=== PATIENT | male | born 1950 | race Caucasian/White ===

== ENCOUNTER 2016-10-13 10:09 | Observation (INO) | payer MEDICAID ==
--- NOTE | 2016-10-13 10:32 | EDM.PDOC ---
ED HISTORY OF PRESENT ILLNESS - General Stated Complaint: TACHYCARDIA/FROM CLINIC Time Seen by Provider: 10/13/16 10:27 Source of Information: Reports: Patient, Provider (Dr. Wall) History Limitations: Reports: No limitations - History of Present Illness INITIAL COMMENTS - FREE TEXT/NARRATIVE: This 66 yo male patient was sent to the ED from the [facility] due to palpitations and tachycardia. According to Dr. Wall, the patient came into the clinic for medication refills. Apparently, the patient had an episode of syncope about 1 year ago and has been on Metoprolol XL (50 mg) daily for some time. During the assessment in the clinic, the patient was noted to have a heart rate between 120-130 bpm and reported palpitations. No lab work or EKG was done in the clinic during this visit. Symptom Onset Date: 10/13/16 Timing/Duration: Reports: Constant Severity: moderate Location, General: Reports: chest Quality: Reports: Other (palpitations) Improves with: Reports: None Worsens with: Reports: None Associated Symptoms (General): Reports: no other symptoms - Related Data Allergies/ADRs: Allergies Allergy/AdvReac Type Severity Reaction Status Date / Time No Known Allergies Allergy Verified 10/02/14 10:15 Home Meds: Home Meds Ibuprofen 400 mg PO Q6H PRN 10/01/14 [History] Aspirin [Adult Low Dose Aspirin EC] 81 mg PO DAILY 10/15/15 [History] Losartan/Hydrochlorothiazide [Losartan-HCTZ 50-12.5 MG] 1 tab PO DAILY 10/15/15 [History] Fenofibrate Nanocrystallized [Fenofibrate] 145 mg PO DAILY 10/13/16 [History] Metoprolol Succinate [Toprol Xl] 50 mg PO DAILY 10/13/16 [History] Past Medical History - Past Health History Medical/Surgical History: Denies Medical/Surgical History Social & Family History - Tobacco Use Smoking Status *Q: Never Smoker Second Hand Smoke Exposure: Yes - Alcohol Use Days Per Week of Alcohol Use: 5 Number of Drinks Per Day: 4 Total Drinks Per Week: 20 - Recreational Drug Use Recreational Drug Use: No ED ROS GENERAL - Review of Systems Review Of Systems: ROS reveals no pertinent complaints other than HPI. ED EXAM, GENERAL - Physical Exam Exam: See Below Exam Limited By: No limitations General Appearance: alert, WD/WN, mild distress Eye Exam: bilateral eye: EOMI, normal inspection, PERRL Ears: normal external exam, normal canal, hearing grossly normal, normal TMs Nose: normal inspection, normal mucosa, no blood Throat/Mouth: Normal inspection, Normal lips, Normal teeth, Normal gums, Normal oropharynx, Normal voice, No airway compromise Head: atraumatic, normocephalic Neck: normal inspection, supple, non-tender, full range of motion Respiratory/Chest: no respiratory distress, lungs clear, normal breath sounds, no accessory muscle use, chest non-tender Cardiovascular: no edema, no gallop, no JVD, no murmur, no rub, tachycardia, irregularly irregular GI/Abdominal: normal bowel sounds, soft, non tender, no organomegaly, no distention, no abnormal bruit, no mass (Male) Exam: Deferred Rectal (Males) Exam: Deferred Back Exam: normal inspection, full range of motion, NT Extremities: normal inspection, normal range of motion, non-tender, normal capillary refill, no pedal edema Neurological: alert, oriented, CN II-XII intact, normal cognition, normal gait, normal reflexes, no motor/sensory deficits Psychiatric: normal affect, normal mood Skin Exam: Warm, Dry, Intact, Normal color, No rash Lymphatic: no adenopathy Course - Vital Signs Last Recorded V/S: Last Vital Signs Temp 35.9 C 10/13/16 11:19 Pulse 127 H 10/13/16 11:19 Resp 19 10/13/16 11:19 BP 147/95 H 10/13/16 11:19 Pulse Ox 96 10/13/16 11:19 - Orders/Labs/Meds Orders: Active Orders 24 hr Category Date Time Status EKG Documentation Completion [RC] URGENT Care 10/13/16 10:13 Active Sodium Chloride 0.9% [Normal Saline] 1,000 ml Med 10/13/16 10:47 Active IV .BOLUS Medication Orders Sodium Chloride (Normal Saline) 1,000 mls @ 125 mls/hr IV .BOLUS ONE Stop: 10/13/16 18:46 Last Admin: 10/13/16 10:52 Dose: 125 mls/hr Labs: Laboratory Tests 10/13/16 10/13/16 Range/Units 10:20 10:20 WBC 7.7 (5.0-10.0) 10^3/uL RBC 4.67 (4.6-6.2) 10^6/uL Hgb 15.1 (14.0-18.0) g/dL Hct 43.1 (40.0-54.0) % MCV 92.3 (80-100) fL MCH 32.3 (27.0-34.0) pg MCHC 35.0 (33.0-35.0) g/dL Plt Count 260 (150-450) 10^3/uL Neut % (Auto) 61.5 (42.2-75.2) % Lymph % (Auto) 26.5 (20.5-50.1) % [place] % (Auto) 9.8 H (2-8) % Eos % (Auto) 1.8 (1.0-3.0) % Baso % (Auto) 0.4 (0.0-1.0) % Sodium 142 (135-145) mmol/L Potassium 3.5 L (3.6-5.0) mmol/L Chloride 104 (101-111) mmol/L Carbon Dioxide 28.0 (21.0-31.0) mmol/L Anion Gap 13.5 BUN 20 H (7-18) mg/dL Creatinine 1.6 H (0.6-1.3) mg/dL Est Cr Clr Drug Dosing 49.68 mL/min Estimated GFR (MDRD) 44 BUN/Creatinine Ratio 12.50 Glucose 122 H (74-105) mg/dL Calcium 9.3 (8.4-10.2) mg/dl Total Bilirubin 0.8 (0.2-1.0) mg/dL AST 29 (10-42) IU/L ALT 21 (10-60) IU/L Alkaline Phosphatase 32 L (42-121) IU/L Troponin I < 0.02 (0.00-0.02) ng/ml Total Protein 7.7 (6.7-8.2) g/dl Albumin 4.4 (3.2-5.5) g/dl Globulin 3.3 Albumin/Globulin Ratio 1.33 Meds: Medications Generic Name Dose Route Start Last Admin Trade Name Freq PRN Reason Stop Dose Admin Sodium Chloride 1,000 mls @ 125 mls/hr 10/13/16 10:47 10/13/16 10:52 Normal Saline IV 10/13/16 18:46 125 mls/hr .BOLUS ONE Administration Discontinued Medications Generic Name Dose Route Start Last Admin Trade Name [place]ell PRN Reason Stop Dose Admin Metoprolol Tartrate 2.5 mg 10/13/16 10:44 10/13/16 10:56 Lopressor IVPUSH 10/13/16 10:45 2.5 mg ONETIME ONE Administration Metoprolol Tartrate 2.5 mg 10/13/16 11:08 10/13/16 11:15 Lopressor IVPUSH 10/13/16 11:09 2.5 mg ONETIME ONE Administration - Re-Assessments/Exams Free Text/Narrative Re-Assessment/Exam: 10/13/16 11:50 Discussed the examination, lab, EKG, treatments and history with Dr. Phelan. Dr. Phelan agreed to accept the patient for continued evaluation and further management. When the above information was relayed to the patient, the patient refused to be admitted to the hospital if his [place] [employer] would not cover the stay. A call was placed to our business office to discuss his insurance coverage with the patient. Marylin from our business office came to the ED to discuss the insurance coverage with the patient. The patient continued to think the admission to the hospital is unnecessary, but agreed to be admitted for further evaluation and management. Departure - Departure Time of Disposition: 12:02 Disposition: Admitted As Inpatient 68 Condition: fair Clinical Impression: Atrial fibrillation with rapid ventricular response Care Plan Goals: Discussed the examination, history, lab and EKG results with Dr. Phelan. Dr. Phelan agreed to admit the patient for continued evaluation and management. - My Orders Last 24 Hours: My Active Orders 10/13/16 10:13 EKG Documentation Completion [RC] URGENT 10/13/16 10:47 Sodium Chloride 0.9% [Normal Saline] 1,000 ml IV .BOLUS - Assessment/Plan Last 24 Hours: My Active Orders 10/13/16 10:13 EKG Documentation Completion [RC] URGENT 10/13/16 10:47 Sodium Chloride 0.9% [Normal Saline] 1,000 ml IV .BOLUS
[2016-10-13] MEDS ORDERED: Metoprolol Tartrate 5 MG/5 ML SDV IVPUSH ONE ×2 (10:44→11:08)
[2016-10-13] MEDS ORDERED: Sodium Chloride 0.9% 1,000 ML IV ONE (10:47)
[2016-10-13 11:19] LABS: CHLORIDE,CL 104 mmol/L (101-111); SODIUM,NA 142 mmol/L (135-145)
[2016-10-13] MEDS: Metoprolol Succinate 25 MG Tab.ER PO SCH (13:31)
[2016-10-13] MEDS ORDERED: Acetaminophen 325 MG Tab PO PRN (13:52)
[2016-10-13] MEDS ORDERED: Sodium Chloride 0.9% 10 ML Syringe FLUSH PRN (13:52)
--- NOTE | 2016-10-13 14:05 | PCM.HP ---
H&P History of Present Illness - General Date of Service: 10/13/16 Admit Problem/Dx: Admission Diagnosis/Problem Admission Diagnosis/Problem Afib, Atrial fibrillation Source of Information: Patient, Old records, Provider History Limitations: Reports: No limitations - History of Present Illness Initial Comments - Free Text/Narative: Genaro is a pleasant 66 y/o who lives alone/independently. He has a PMH of HTN, HLD, CKD, ETOH abuse and h/o palpitations. pt presented to the EOD from clinic. He presented to clinic for routine f/u and was found to be in afib with RVR. PT states that over the past year of so he has had episodes of palpitations/lightheadedness associated with chest discomfort, occasionally diaphoresis, no nausea/emesis, no syncope/near syncope. events seem to occur at least one monthly and are always triggered with excertion- golfing, working out, shoveling snow for examples. The symptoms resolve after 10--15 minutes of rest. Has never occurred while at rest. PT was seen one year ago for these symptoms. EKG, ECHO and stress test were noted to be all unremarkable. PT was started on several BP meds for is uncontrolled HTN but he has cont to have these episodes. w/u in EOD significant for afib with RVR- pulse into 140s. pt given 2.5 mg lopressor X2 but pulse only improved to 120s. trops was negative. upon transfer to floor- pt converted back to sinus without any further interventions . pt currently is asymptomatic. He denies h/o thyroid dz, no recent illness, no herbal supplements, no energy drinks. no h/o pulm dz . He does not smoke He does drink 4-6 cans of pepsis every night with whiskey. no FHX of afib. - Related Data Allergies/Adverse Reactions: Allergies Allergy/AdvReac Type Severity Reaction Status Date / Time No Known Allergies Allergy Verified 10/02/14 10:15 Home Medications: Home Meds Aspirin [Adult Low Dose Aspirin EC] 81 mg PO DAILY 10/15/15 [History] Losartan/Hydrochlorothiazide [Losartan-HCTZ 50-12.5 MG] 1 tab PO DAILY 10/15/15 [History] Fenofibrate Nanocrystallized [Fenofibrate] 145 mg PO DAILY 10/13/16 [History] Metoprolol Succinate [Toprol Xl] 50 mg PO DAILY 10/13/16 [History] Past Medical History - Past Health History Medical/Surgical History: Denies Medical/Surgical History HEENT History: Reports: Impaired vision Social & Family History - Family History Family Medical History: Noncontributory Cardiac: Reports: Hypertension (mother), Other (see below) ("heart dz" - in mother) Neurological: Reports: CVA (mother and sister) - Tobacco Use Smoking Status *Q: Never Smoker Second Hand Smoke Exposure: No - Caffeine Use Caffeine Use: Reports: Soda - Alcohol Use Days Per Week of Alcohol Use: 7 Number of Drinks Per Day: 6 Total Drinks Per Week: 42 Date of Last Drink: 10/12/16 Time of Last Drink: 21:00 - Recreational Drug Use Recreational Drug Use: No H&P Review of Systems - Review of Systems: Review Of Systems: See Below General: Reports: no symptoms HEENT: Reports: no symptoms Pulmonary: Reports: No Symptoms Cardiovascular: Reports: palpitations, lightheadedness, blood pressure problem Gastrointestinal: Reports: No symptoms Genitourinary: Reports: no symptoms Musculoskeletal: Reports: no symptoms Skin: Reports: no symptoms Psychiatric: Reports: no symptoms Neurological: Reports: No Symptoms Exam - Exam Exam: See Below - Vital Signs Vital Signs: Last Vital Signs Temp 36.8 C 10/13/16 12:29 Pulse 80 10/13/16 13:31 Resp 20 10/13/16 12:29 BP 157/104 H 10/13/16 13:31 Pulse Ox 100 10/13/16 12:29 Weight: 87.09 kg - Exam General: alert, oriented, cooperative HEENT: Conjunctiva clear Lungs: Clear to auscultation, Normal respiratory effort Cardiovascular: regular rate, regular rhythm Abdomen: normal bowel sounds, soft Extremities: normal inspection Peripheral Pulses: 2+: radial (L), radial (R), dorsalis pedis (L), dorsalis pedis (R) Skin: warm Neuro Extensive - Mental Status: alert, oriented x3, normal mood/affect, normal cognition Psychiatric: alert, normal affect, normal mood - Patient Data Result Diagrams: 10/13/16 10:20 10/13/16 10:20 *Q Meaningful Use (ADM) - VTE *Q VTE Criteria *Q: - Stroke *Q Stroke Criteria *Q: - AMI *Q AMI Criteria *Q: - Problem List (1) Atrial fibrillation with rapid ventricular response SNOMED Code(s): 628512752527025 ICD Code: I48.91 - UNSPECIFIED ATRIAL FIBRILLATION Status: Acute Current Visit: Yes Problem List Initiated/Reviewed/Updated: Yes Orders Last 24hrs: Active Orders 24 hr Category Date Time Status Patient Status [ADT] Routine ADT 10/13/16 13:53 Ordered Oxygen Therapy [RC] PRN Care 10/13/16 13:53 Ordered Telemetry Monitoring [Cardiac Monitoring] [RC] 08,20 Care 10/13/16 12:38 Active Up ad Kim [RC] ASDIRECTED Care 10/13/16 13:52 Ordered VTE/DVT Education [RC] PER UNIT ROUTINE Care 10/13/16 13:53 Ordered Vital Signs [RC] Q4H Care 10/13/16 13:53 Ordered Regular Diet [DIET] Diet 10/13/16 Dinner Active Echo Comp wo Cont [US] Routine Exams 10/13/16 12:38 Ordered TSH ULTRASENSITIVE [CHEM] Routine Lab 10/13/16 13:55 Ordered Acetaminophen [Tylenol] Med 10/13/16 13:52 Ordered 650 mg PO Q4H PRN Enoxaparin [Lovenox] Med 10/14/16 09:00 Ordered 40 mg SUBCUT DAILY Metoprolol Succinate [Toprol XL] Med 10/13/16 12:45 Active 75 mg PO DAILY Sodium Chloride 0.9% [Saline Flush] Med 10/13/16 13:52 Ordered 10 ml FLUSH ASDIRECTED PRN Saline Lock Insert [OM.PC] Routine Oth 10/13/16 13:52 Ordered Resuscitation Status Routine Resus Stat 10/13/16 13:52 Ordered Medication Orders Acetaminophen (Tylenol) 650 mg PO Q4H PRN PRN Reason: Pain (Mild 1-3)/fever Enoxaparin Sodium (Lovenox) 40 mg SUBCUT DAILY CHERYL Sodium Chloride (Normal Saline) 1,000 mls @ 125 mls/hr IV .BOLUS ONE Stop: 10/13/16 18:46 Last Admin: 10/13/16 10:52 Dose: 125 mls/hr Metoprolol Succinate (Toprol Xl) 75 mg PO DAILY CHERYL Last Admin: 10/13/16 13:31 Dose: 75 mg Sodium Chloride (Saline Flush) 10 ml FLUSH ASDIRECTED PRN PRN Reason: Keep Vein Open Assessment/Plan Comment:: afib with RVR - proxysmal -pt reports symptoms c/w prox afib - now finally documented -pt self converted with IV metoprolol -will increase his metprolol suc to 75 mg -obtain ECHO -recommend anticoag - will need to discuss risk / benefit with pt especially as it related to his ETOH use -cont monitor - increase activity later to see if can trigger again -recommend cardiac consult with holter -ECHO to eval for clot and structural heart dz -cont ASA -check TSH -recom ETOH cessation ETOH abuse -pt willing to consider cessation - will accept name /contact for treatment programs -monitor for withdrawal -low threshold to start CIWA/ativan but pt state he went 3-4 days about 2 months ago of not drinking because he was sick and did not have any symptoms HTN - resistant -currently elevated - likely stress induces -resume home meds- increased metoprolol to 75 mg , cont HCTZ and losartan CKD -baseline creatinine 1.6-1.7 - suspect HTN dz as etiology -avoid nephrotoxins -cont ARB DVT lovenxo full code PCP Dr. Wall
[2016-10-13] MEDS: Losartan 50 MG Tab PO SCH (15:07)
[2016-10-13] MEDS: Hydrochlorothiazide 25 MG Tab PO SCH (15:09)
[2016-10-13] MEDS ORDERED: Potassium Chloride 10 MEQ Tab.ER PO ONE (17:19)
[2016-10-13] MEDS: Fenofibrate Nanocrystallized 145 MG Tab PO SCH (21:26)
--- NOTE | 2016-10-14 08:29 | PCM.DCSUM1 ---
Discharge Summary - Hospital Course HPI Initial Comments: Genaro is a pleasant 66 y/o who lives alone/independently. He has a PMH of HTN, HLD, CKD, ETOH abuse and h/o palpitations. pt presented to the EOD from clinic. He presented to clinic for routine f/u and was found to be in afib with RVR. PT states that over the past year of so he has had episodes of palpitations/lightheadedness associated with chest discomfort, occasionally diaphoresis, no nausea/emesis, no syncope/near syncope. events seem to occur at least one monthly and are always triggered with excertion- golfing, working out, shoveling snow for examples. The symptoms resolve after 10--15 minutes of rest. Has never occurred while at rest. PT was seen one year ago for these symptoms. EKG, ECHO and stress test were noted to be all unremarkable. PT was started on several BP meds for is uncontrolled HTN but he has cont to have these episodes. w/u in EOD significant for afib with RVR- pulse into 140s. pt given 2.5 mg lopressor X2 but pulse only improved to 120s. trops was negative. upon transfer to floor- pt converted back to sinus without any further interventions . pt currently is asymptomatic. He denies h/o thyroid dz, no recent illness, no herbal supplements, no energy drinks. no h/o pulm dz . He does not smoke He does drink 4-6 cans of pepsis every night with whiskey. no FHX of afib. - Discharge Data Discharge Date: 10/14/16 Discharge Disposition: Home, Self-Care 01 Condition: Good - Discharge Diagnosis/Problem(s) (1) Atrial fibrillation with rapid ventricular response SNOMED Code(s): 456040165549305 ICD Code: I48.91 - UNSPECIFIED ATRIAL FIBRILLATION Status: Acute - Patient Summary/Data Operative Procedure(s) Performed: Cataract extraction with lens implant, left eye Hospital Course: afib with RVR - proxysmal -pt reports recurrent symptoms c/w prox afib - now finally documented -pt self converted with IV metoprolol -we did increase his metprolol suc to 75 mg to try control rate when he goes into afib -obtain ECHO -recommended anticoag - had long conversation with pt regarding risk/benefit of anticoag. His CHADsVAC score of 2 and HASBLED score of 2 would indicate his is a good candidate for anticoag. DId discuss risk of CVA / bleed and recommend d/c ETOH while on anticoad. at this time pt has declined but is seriously considering it and will address again wiht PCP -ECHO to eval for clot and structural heart dz - completed; report pending at time of discharge -cont ASA - since declining anticoag -checked TSH which was nl -recommed ETOH / caffeine cessation ETOH abuse -pt willing to consider cessation - will accept name /contact for treatment programs -monitor for withdrawal -low threshold to start CIWA/ativan but pt state he went 3-4 days about 2 months ago of not drinking because he was sick and did not have any symptoms HTN - resistant -currently elevated - likely stress induces pt states is typically controlled inclinic and when checks it at the drug store. -cont home meds- increased metoprolol to 75 mg , cont HCTZ and losartan CKD -baseline creatinine 1.6-1.7 - suspect HTN dz as etiology -avoid nephrotoxins -cont ARB DVT lovenxo full code PCP Dr. Wall - Patient Instructions Diet: Usual Diet as Tolerated Activity: As Tolerated Other/Special Instructions: f/u with Dr. Wall - Discharge Plan Prescriptions/Med Rec: Metoprolol Succinate [Toprol XL] 75 mg PO DAILY #90 tab.er Home Medications: Home Meds Aspirin [Adult Low Dose Aspirin EC] 81 mg PO DAILY 10/15/15 [History] Losartan/Hydrochlorothiazide [Losartan-HCTZ 50-12.5 MG] 1 tab PO DAILY 10/15/15 [History] Fenofibrate Nanocrystallized [Fenofibrate] 145 mg PO DAILY 10/13/16 [History] Metoprolol Succinate [Toprol XL] 75 mg PO DAILY #90 tab.er 10/14/16 [Rx] Patient Handouts: Atrial Fibrillation, Krol-xh-Mips - Discharge Summary/Plan Comment DC Time >30 min.: No - General Info Date of Service: 10/14/16 Subjective Update: no further events; pt is at baseline. has no complaints - requests d/c home Functional Status: Reports: tolerating diet, ambulating, urinating - Review of Systems General: Reports: No Symptoms Pulmonary: Reports: no symptoms Cardiovascular: Reports: No Symptoms Gastrointestinal: Reports: No symptoms Musculoskeletal: Reports: no symptoms - Patient Data Vitals - Most Recent: Last Vital Signs Temp 36.2 C 10/14/16 07:00 Pulse 64 10/14/16 07:00 Resp 20 10/14/16 07:00 BP 154/93 H 10/14/16 07:00 Pulse Ox 99 10/14/16 07:00 Weight - Most Recent: 87.09 kg I&O - Last 24 hours: Intake & Output 10/13/16 10/14/16 10/14/16 22:59 06:59 14:59 Intake Total 1004 200 Output Total 0 Balance 1004 200 Med Orders - Current: Current Medications Acetaminophen (Tylenol) 650 mg PO Q4H PRN PRN Reason: Pain (Mild 1-3)/fever Aspirin (Halfprin) 81 mg PO DAILY [facility] Enoxaparin Sodium (Lovenox) 40 mg SUBCUT DAILY [facility] Fenofibrate (Tricor) 145 mg PO DAILY [facility] Last Admin: 10/13/16 21:26 Dose: 145 mg Hydrochlorothiazide (Hydrochlorothiazide) 12.5 mg PO DAILY [facility] Last Admin: 10/13/16 15:09 Dose: 12.5 mg Losartan Potassium (Cozaar) 50 mg PO DAILY [facility] Last Admin: 10/13/16 15:07 Dose: 50 mg Metoprolol Succinate (Toprol Xl) 75 mg PO DAILY [facility] Last Admin: 10/13/16 13:31 Dose: 75 mg Sodium Chloride (Saline Flush) 10 ml FLUSH ASDIRECTED PRN PRN Reason: Keep Vein Open Discontinued Medications Sodium Chloride (Normal Saline) 1,000 mls @ 125 mls/hr IV .BOLUS ONE Stop: 10/13/16 18:46 Last Admin: 10/13/16 10:52 Dose: 125 mls/hr Metoprolol Tartrate (Lopressor) 2.5 mg IVPUSH ONETIME ONE Stop: 10/13/16 10:45 Last Admin: 10/13/16 10:56 Dose: 2.5 mg Metoprolol Tartrate (Lopressor) 2.5 mg IVPUSH ONETIME ONE Stop: 10/13/16 11:09 Last Admin: 10/13/16 11:15 Dose: 2.5 mg Potassium Chloride (Klor-Con 10) 40 meq PO ONETIME ONE Stop: 10/13/16 17:20 Last Admin: 10/13/16 17:46 Dose: 40 meq - Exam General: Reports: alert, oriented, cooperative, no acute distress Lungs: Reports: Clear to auscultation, Normal respiratory effort Cardiovascular: Reports: Regular Rate, Regular Rhythm, No Murmurs *Q Meaningful Use (DIS) - VTE *Q VTE Criteria *Q: - Stroke *Q Stroke Criteria *Q: - AMI *Q AMI Criteria *Q:
[2016-10-14] MEDS: Metoprolol Succinate 25 MG Tab.ER PO SCH (09:00)
[2016-10-14] MEDS ORDERED: Enoxaparin 40 MG/0.4 ML Syringe SUBCUT SCH (09:00)
[2016-10-14] MEDS ORDERED: Aspirin 81 MG Tab.EC PO SCH (09:00)
[2016-10-14] MEDS: Hydrochlorothiazide 25 MG Tab PO SCH (09:01)
[2016-10-14] MEDS: Losartan 50 MG Tab PO SCH (09:01)
[2016-10-14] MEDS: Fenofibrate Nanocrystallized 145 MG Tab PO SCH (09:03)
[2016-10-14 09:05] VITALS: BP 149/81
--- NOTE | 2016-10-14 15:36 | EKG ---
10/13/2016 - PAOLA RODRIGUEZ - TIME OF EK hours. EKG shows atrial fibrillation with rapid ventricular response at a rate of 146 beats per minute. There is also prolonged QTc at 493 milliseconds. [facility] /[id number]
== END 2016-10-14 10:00 | disposition home or self-care (01) ==
LOC: DL.ED 10:09 → DL.MS 11:48 → UNDOADMIN 11:48 → DL.ED 12:05 → INTOOBSV 13:52 → DL.MS 13:52
PROVIDERS: ADMIT Internal Medicine; ATTEND Internal Medicine
DX: I48.91 Unspecified atrial fibrillation (principal); I12.9 Hypertensive chronic kidney disease with stage 1 through stage 4 chronic kidney disease, or unspecified chronic kidney disease; N18.9 Chronic kidney disease, unspecified; Z79.82 Long term (current) use of aspirin; Z79.899 Other long term (current) drug therapy; E78.5 Hyperlipidemia, unspecified
CPT/HCPCS: 36415; 80053; 84443; 84484; 85025; 93005; 93306; 96361; 96372; 96374; 96376; 99285; A9270; G0378; J1650; J7030; J3490

== ENCOUNTER 2020-09-17 15:26 | Emergency (ER) | payer MEDICARE, BC ==
--- NOTE | 2020-09-17 15:39 | EDM.PDOC ---
ED HPI GENERAL MEDICAL PROBLEM - General Chief Complaint: Abdominal Pain Stated Complaint: STOMACH PAIN, CRAMPS Time Seen by Provider: 09/17/20 15:38 Source of Information: Reports: Patient, RN, RN Notes Reviewed History Limitations: Reports: No Limitations - History of Present Illness INITIAL COMMENTS - FREE TEXT/NARRATIVE: Patient presents to the ED via personal vehicle with complaints of abdominal cramping and dark stools. The patient states he first noted the abdominal cramping about one weeks ago; he first noted the dark stools today. He reports the abdominal cramping in his bilateral lower abdominal quadrants and rates it at a 7/10 in severity at it's worst. He had drank one bottle of Peptol Bismol over the past two-three days with no alleviation in symptoms. He denies fever, shaking chills, dyspepsia, nausea, vomiting, dysuria, hematuria, or hematochezia. Patient reports he has been able to eat and drink, as normal. He states he has experienced pain similar to this about 35 year ago, but does not remember what diagnosis/treatment was determined. He denies tobacco, alcohol, or recreational drug use. Abdomen Pain Score (Numeric/FACES): 6 - Related Data Allergies Allergy/AdvReac Type Severity Reaction Status Date / Time No Known Allergies Allergy Verified 09/17/20 15:36 Home Meds: Home Meds Aspirin [Adult Low Dose Aspirin EC] 81 mg PO DAILY 10/15/15 [History] Losartan/Hydrochlorothiazide [Losartan-HCTZ 50-12.5 MG] 1 tab PO DAILY 10/15/15 [History] Fenofibrate Nanocrystallized [Fenofibrate] 145 mg PO DAILY 10/13/16 [History] Metoprolol Succinate [Toprol XL] 75 mg PO DAILY #90 tab.er 10/14/16 [Rx] Past Medical History - Past Health History Medical/Surgical History: Denies Medical/Surgical History HEENT History: Reports: Impaired Vision Cardiovascular History: Reports: Afib, Hypertension Neurological History: Reports: Other (See Below) Other Neuro History: sciatica nerve pain Social & Family History - Family History Family Medical History: No Pertinent Family History Cardiac: Reports: Hypertension, Other (See Below) Neurological: Reports: CVA (mother and sister) - Caffeine Use Caffeine Use: Reports: Soda ED ROS GENERAL - Review of Systems Review Of Systems: Comprehensive ROS is negative, except as noted in HPI. ED EXAM, GI/ABD - Physical Exam Exam: See Below Exam Limited By: No Limitations General Appearance: Alert, No Apparent Distress Throat/Mouth: Normal Voice, No Airway Compromise Head: Atraumatic, Normocephalic Respiratory/Chest: No Respiratory Distress, Lungs Clear, Normal Breath Sounds, No Accessory Muscle Use, Chest Non-Tender Cardiovascular: Normal Peripheral Pulses, Regular Rate, Rhythm, No Edema, No Gallop, No JVD, No Murmur, No Rub GI/Abdominal Exam: Soft, No Distention, No Abnormal Bruit, No Mass, Pelvis Stable, Guarding, Tender (To palpation of RLQ and LLQ; Right > Left), Abnormal Bowel Sounds (Hypoactive bowel sounds). No: Rigid, Rebound (Male) Exam: No Hernia Back Exam: Normal Inspection, Full Range of Motion. No: CVA Tenderness (L), CVA Tenderness (R) Extremities: Normal Inspection, Normal Range of Motion, Non-Tender, Normal Capillary Refill, No Pedal Edema Neurological: Alert, Oriented, CN II-XII Intact, Normal Cognition, Normal Gait, No Motor/Sensory Deficits Psychiatric: Normal Affect, Normal Mood Skin Exam: Warm, Dry, Intact, Normal Color, No Rash. No: Ecchymosis, Erythema, Jaundice, Mottled, Pallor, Petechiae Course - Vital Signs Last Recorded V/S: Last Vital Signs Temp 97.4 F 09/17/20 15:36 Pulse 77 09/17/20 15:36 Resp 16 09/17/20 15:36 BP 146/85 H 09/17/20 15:36 Pulse Ox 99 09/17/20 15:36 - Orders/Labs/Meds Labs: Laboratory Tests 09/17/20 09/17/20 09/17/20 Range/Units 15:38 15:38 15:38 WBC 10.7 H (5.0-10.0) 10^3/uL RBC 4.28 L (4.6-6.2) 10^6/uL Hgb 14.0 (14.0-18.0) g/dL Hct 39.9 L (40.0-54.0) % MCV 93.2 (80-100) fL MCH 32.7 (27.0-34.0) pg MCHC 35.1 H (33.0-35.0) g/dL Plt Count 306 (150-450) 10^3/uL Neut % (Auto) 67.0 (42.2-75.2) % Lymph % (Auto) 18.8 L (20.5-50.1) % [place] % (Auto) 13.6 H (2-8) % Eos % (Auto) 0.4 L (1.0-3.0) % Baso % (Auto) 0.2 (0.0-1.0) % PT 10.8 (9.0-12.0) SEC INR 1.1 (0.9-1.2) APTT 24.8 (22.0-34.0) SEC Sodium 136 (136-145) mmol/L Potassium 3.1 L (3.5-5.1) mmol/L Chloride 98 (98-107) mmol/L Carbon Dioxide 27 (21-32) mmol/L Anion Gap 14.1 H (7-13) mEq/L BUN 26 H (7-18) mg/dL Creatinine 1.64 H (0.70-1.30) mg/dL Est Cr Clr Drug Dosing 45.91 mL/min Estimated GFR (MDRD) 42 BUN/Creatinine Ratio 15.9 (No establ ref range) Glucose 126 H (74-99) mg/dL Calcium 8.8 (8.5-10.1) mg/dL Magnesium 1.8 (1.8-2.4) mg/dL Total Bilirubin 0.7 (0.2-1.0) mg/dL AST 18 (15-37) U/L ALT 19 (16-63) U/L Alkaline Phosphatase 43 L (46-116) U/L C-Reactive Protein 7.2 H (0.0-0.9) mg/dL Total Protein 8.2 (6.4-8.2) g/dL Albumin 3.7 (3.4-5.0) g/dL Globulin 4.5 Albumin/Globulin Ratio 0.8 Urine Color (YELLOW) Urine Appearance (CLEAR) Urine pH (5.0-9.0) Ur Specific [place] (1.005-1.030) Urine Protein (NEGATIVE) Urine Glucose (UA) (NEGATIVE) Urine Ketones (NEGATIVE) Urine Occult Blood (NEGATIVE) Urine Nitrite (NEGATIVE) Urine Bilirubin (NEGATIVE) Urine Urobilinogen (0.2-1.0) mg/dL Ur Leukocyte Esterase (NEGATIVE) 09/17/20 Range/Units 16:24 WBC (5.0-10.0) 10^3/uL RBC (4.6-6.2) 10^6/uL Hgb (14.0-18.0) g/dL Hct (40.0-54.0) % MCV (80-100) fL MCH (27.0-34.0) pg MCHC (33.0-35.0) g/dL Plt Count (150-450) 10^3/uL Neut % (Auto) (42.2-75.2) % Lymph % (Auto) (20.5-50.1) % [place] % (Auto) (2-8) % Eos % (Auto) (1.0-3.0) % Baso % (Auto) (0.0-1.0) % PT (9.0-12.0) SEC INR (0.9-1.2) APTT (22.0-34.0) SEC Sodium (136-145) mmol/L Potassium (3.5-5.1) mmol/L Chloride (98-107) mmol/L Carbon Dioxide (21-32) mmol/L Anion Gap (7-13) mEq/L BUN (7-18) mg/dL Creatinine (0.70-1.30) mg/dL Est Cr Clr Drug Dosing mL/min Estimated GFR (MDRD) BUN/Creatinine Ratio (No establ ref range) Glucose (74-99) mg/dL Calcium (8.5-10.1) mg/dL Magnesium (1.8-2.4) mg/dL Total Bilirubin (0.2-1.0) mg/dL AST (15-37) U/L ALT (16-63) U/L Alkaline Phosphatase (46-116) U/L C-Reactive Protein (0.0-0.9) mg/dL Total Protein (6.4-8.2) g/dL Albumin (3.4-5.0) g/dL Globulin Albumin/Globulin Ratio Urine Color Yellow (YELLOW) Urine Appearance Slightly cloudy (CLEAR) Urine pH 5.5 (5.0-9.0) Ur Specific [place] 1.010 (1.005-1.030) Urine Protein Negative (NEGATIVE) Urine Glucose (UA) Negative (NEGATIVE) Urine Ketones Negative (NEGATIVE) Urine Occult Blood Negative (NEGATIVE) Urine Nitrite Negative (NEGATIVE) Urine Bilirubin Negative (NEGATIVE) Urine Urobilinogen 0.2 (0.2-1.0) mg/dL Ur Leukocyte Esterase Negative (NEGATIVE) Meds: Medications Discontinued Medications Generic Name Dose Route Start Last Admin Trade Name Nathanq PRN Reason Stop Dose Admin Sodium Chloride 500 mls @ 999 mls/hr 09/17/20 15:51 09/17/20 15:53 Normal Saline IV 09/17/20 16:21 999 mls/hr .BOLUS ONE Administration Iopamidol 75 ml 09/17/20 16:16 Isovue-300 (61%) IVPUSH 09/17/20 16:17 ONETIME ONE Iopamidol 100 ml 09/17/20 16:39 09/17/20 16:44 Isovue-300 (61%) IVPUSH 09/17/20 16:40 75 ml ONETIME ONE Administration - Re-Assessments/Exams Free Text/Narrative Re-Assessment/Exam: 09/17/20 Patient states he is unable to urinate as he voided shortly before presenting to the ED. Will administer NS 500mL/hr to help with hydration. Mild leukocytosis noted with WBC of 10.7; no left shift noted. Dehydration appreciated with creatinine 1.64, BUN 25, and anion gap of 14.1 Mild hypokalemia noted with K 3.1; will replace with oral therapy given small fluid bolus. CT abdomen pelvis ordered based on mild leukocytosis and physical exam. Findings of blood work and examination discussed with patient. CT abdomen/pelvis remarkable for pancolonic diverticulosis and diverticulitis of the sigmoid colon. Findings of imaging discussed with patient. Discussed treatment with ciprofloxacin and metronidazole for 10 days. Instructed patient to follow up with primary care provider following antibiotic therapy. Red flag signs and symptoms which would warrant reevaluation discussed. Patient verbalized understanding and agreement with the plan of care. Departure - Departure Time of Disposition: 17:15 Disposition: Home, Self-Care 01 Condition: Good Clinical Impression: Pancolonic diverticulosis, Sigmoid diverticulitis - Discharge Information *PRESCRIPTION DRUG MONITORING PROGRAM REVIEWED*: Not Applicable *COPY OF PRESCRIPTION DRUG MONITORING REPORT IN PATIENT STAR: Not Applicable Instructions: Diverticulitis, [id number] Referrals: Natalia Hatfield NP [Ordering Only Provider] - Forms: ED Department Discharge Additional Instructions: Rx: Metronidazole Rx: Ciprofloxacin 1.) Take all of both antibiotics until they are gone. 2.) Follow up with your primary care provider following completion of antibiotics, or should you develop fever, shaking chills, heart palpitations, or worsening abdominal pain despite medications. 3.) You may take ibuprofen (Advil/Motrin) 400mg every six hours, as cramping persists. You may take acetaminophen (Tylenol) 650mg every six hours, as cramping persists. 4.) Apply a warm compress to abdomen to help alleviate cramping. Sepsis Event Note (ED) - Focused Exam Vital Signs: Vital Signs Temp Pulse Resp BP Pulse Ox 09/17/20 15:36 97.4 F 77 16 146/85 H 99
[2020-09-17 15:40] VITALS: BP 146/85; PULSE 77
[2020-09-17] MEDS ORDERED: Sodium Chloride 0.9% 500 ML IV ONE (15:51)
[2020-09-17 16:05] LABS: ANION GAP 14.1 mEq/L (7-13); PTT,PARTIAL THROMBOPLSTIN TIME 24.8 SEC (22.0-34.0)
[2020-09-17] MEDS ORDERED: Iopamidol 612 MG/ML 100 ML Bottle IVPUSH ONE ×2 (16:16→16:39)
--- NOTE | 2020-09-17 16:57 | CT ---
EXAMINATION: Abdomen Pelvis w Cont SEX: Male AGE: 70 years CLINICAL HISTORY: 70-year-old male Abdominal cramping (RLQ pain) x1 week; WBC 10.9. Scan technique: Volume acquisition of data from the abdomen/pelvis obtained during/after intravenous ministration 75 cc nonionic Isovue contrast while patient was lying supine on the Siemens multi slice CT scanner [place], [place]. All data archived in the PACS system for storage, reformatting axial/sagittal/coronal planes, study. INTERPRETATION: Abnormal. 1. Pancolonic diverticulosis. Pericolonic inflammatory "dirty" peritoneal fat in the lower midabdomen around sigmoid. 2. No abdominal or pelvic mass lesion. No mesenteric or retroperitoneal lymphadenopathy. 3. Normal appendix identified RLQ. Terminal ileum unremarkable. (Positive contrast scattered throughout colon) 4. Gallbladder, liver, stomach, spleen, pancreas and adrenal glands and kidneys anatomically correct. No sign of renal cortical mass, inflammation, nephrolithiasis or obstructive uropathy. Mildly enlarged inhomogeneously dense prostate. 5. No ventral wall hernias, signs of mechanical bowel obstruction, ascites or free intraperitoneal air. 6. Lung bases clear. Normal cardiac silhouette. No pericardial or pleural effusions. 7. Atheromatous calcifications normal caliber aortoiliac vessels. Hypertrophic spondylosis lumbar spine. CONCLUSION: Pancolonic diverticulosis and sigmoid DIVERTICULITIS. Normal appendix.
[2020-09-17] MEDS ORDERED: Potassium Chloride 10 MEQ Tab.ER PO ONE (17:21)
== END 2020-09-17 17:30 | disposition home or self-care (01) ==
LOC: DL.ED 15:26
DX: K57.32 Diverticulitis of large intestine without perforation or abscess without bleeding (principal); K57.30 Diverticulosis of large intestine without perforation or abscess without bleeding; I48.91 Unspecified atrial fibrillation; I10 Essential (primary) hypertension; Z79.82 Long term (current) use of aspirin; Z79.899 Other long term (current) drug therapy
CPT/HCPCS: 36415; 74177; 80053; 81003; 83735; 85025; 85610; 85730; 86140; 99284; A9270; J7030; Q9967